=== PATIENT | male | born 1945 | race African-American/Black ===

== ENCOUNTER → 2018-08-12 | Outpatient (CLI) | payer MEDICARE ==
[2018-08-12 11:37] LABS: ABSOLUTE EOSINOPHILS # (AUTO) 0.1 10^3/uL (0.0-0.6); ABSOLUTE MONOCYTES (AUTO) 0.3 10^3/uL (0.1-1.4); BASOPHILS % (AUTO) 0.4 % (0-2); TOTAL CELLS COUNTED % (AUTO) 100 %
[2018-08-12 11:48] LABS: ABSOLUTE LYMPHOCYTES (AUTO) 1.4 10^3/uL (0.5-4.7); ABSOLUTE NEUT (AUTO) 2.5 10^3/uL (1.7-8.2); EOSINOPHILS % (AUTO) 3.2 % (0-6); HEMATOCRIT 36.9 % (37.9-51.0); HEMOGLOBIN 12.4 g/dL (13.5-17.0); LYMPHOCYTES % (AUTO) 31.8 % (13-45); MEAN CORPUSCULAR HEMOGLOBIN 30.2 pg (27.0-33.4); MEAN CORPUSCULAR HGB CONC 33.7 g/dL (32.0-36.0); MEAN CORPUSCULAR VOLUME 90 fl (80-97); MONOCYTES % (AUTO) 7.8 % (3-13); PLATELET COUNT 236 10^3/uL (150-450); RED BLOOD COUNT 4.12 10^6/uL (4.35-5.55); SEGMENTED NEUTROPHILS % (AUTO) 56.8 % (42-78); WHITE BLOOD COUNT 4.4 10^3/uL (4.0-10.5)
[2018-08-12 11:56] LABS: ALANINE AMINOTRANSFERASE 28 U/L (21-72); ALBUMIN 4.4 g/dL (3.5-5.0); ALKALINE PHOSPHATASE 86 U/L (38-126); ANION GAP 9 (5-19); ASPARTATE AMINO TRANSFERASE 19 U/L (17-59); BILIRUBIN,DIRECT 0.2 mg/dL (0.0-0.4); BILIRUBIN,TOTAL 0.5 mg/dL (0.2-1.3); BLOOD UREA NITROGEN 24 mg/dL (7-20); CALCIUM 9.6 mg/dL (8.4-10.2); CARBON DIOXIDE 23 mmol/L (22-30); CHLORIDE 111 mmol/L (98-107); CHOLESTEROL 153.46 mg/dL (0-200); GLUCOSE 90 mg/dL (75-110); POTASSIUM 4.6 mmol/L (3.6-5.0); SODIUM 142.7 mmol/L (137-145); TOTAL PROTEIN 6.9 g/dL (6.3-8.2); TRIGLYCERIDES 81 mg/dL (<150)
[2018-08-12 12:03] LABS: AMORPHOUS SEDIMENT,URINE TRACE /HPF; APPEARANCE,URINE TURBID; BILIRUBIN,URINE NEGATIVE (NEGATIVE); COLOR,URINE YELLOW; GLUCOSE, URINE NEGATIVE (NEGATIVE); KETONES,URINE NEGATIVE (NEGATIVE); LEUKOCYTE ESTERASE,URINE LARGE (NEGATIVE); NITRITE,URINE NEGATIVE (NEGATIVE); PROTEIN,URINE 30 mg/dL (NEGATIVE); URINE SPECIFIC GRAVITY 1.014; UROBILINOGEN,URINE NEGATIVE mg/dL (<2.0)
[2018-08-12 12:10] LABS: DIRECT LDL 79 mg/dL (<100)
--- NOTE | 2018-08-12 12:23 | RADIOLOGY REPORT (SQ) ---
EXAM DESCRIPTION: CHEST PA/LATERAL COMPLETED DATE/TIME: 08/12/2018 11:06 am REASON FOR STUDY: CHRONIC OBSTRUCTIVE PULMONARY DISEASE, UNSPECIFIED COMPARISON: None. EXAM PARAMETERS: NUMBER OF VIEWS: two views TECHNIQUE: Digital Frontal and Lateral radiographic views of the chest acquired. RADIATION DOSE: NA LIMITATIONS: none FINDINGS: LUNGS AND PLEURA: Bandlike atelectasis in the left posterior costophrenic sulcus on latera l view. Lungs are otherwise well inflated and clear. Mild flattening of the hemidiaphragms. No pleural effu cosmo or pneumothorax. MEDIASTINUM AND HILAR STRUCTURES: No masses or contour abnormalities. HEART AND VASCULAR STRUCTURES: Heart normal size. No evidence for failure. BONES: No acute findings. HARDWARE: None in the chest. OTHER: No other significant finding. IMPRESSION: Bandlike atelectasis or scarring in the left posterior costophrenic sulcus. TECHNICAL DOCUMENTATION: JOB ID: [id number] [employer]- All Rights Reserved Reading location - IP/workstation name: [email or web address]
[2018-08-13 10:23] LABS: PROSTATE SPECIFIC ANTIGEN 1.4 ng/mL (0.0-4.0); PSA % FREE 27.1 % (.); PSA FREE 0.38 ng/mL
== END ==
LOC: OD 10:17
PROVIDERS: ATTEND Internal Medicine
DX: I12.9 Hypertensive chronic kidney disease with stage 1 through stage 4 chronic kidney disease, or unspecified chronic kidney disease (principal); N18.2 Chronic kidney disease, stage 2 (mild); J44.9 Chronic obstructive pulmonary disease, unspecified; E55.9 Vitamin D deficiency, unspecified; E78.2 Mixed hyperlipidemia; R01.1 Cardiac murmur, unspecified; R97.20 Elevated prostate specific antigen [PSA]
CPT/HCPCS: 36415; 71046; 80053; 80061; 81001; 82306; 84154; 84443; 85025

== ENCOUNTER → 2018-08-27 | Outpatient (CLI) | payer MEDICARE ==
--- NOTE | 2018-08-27 12:11 | RADIOLOGY REPORT (SQ) ---
EXAM DESCRIPTION: U/S RETROPERITON (RENAL/AORTA) COMPLETED DATE/TIME: 08/27/2018 11:47 am REASON FOR STUDY: RENAL FAILURE (R17), CKD IV (N18.4) R17 UNSPECIFIED JAUNDICE N18.4 CHRONIC KIDNE Y DISEASE, STAGE 4 (SEVERE) COMPARISON: None. TECHNIQUE: Dynamic and static grayscale images acquired of the kidneys and bladder and recorded on P ACS. Additional selected color Doppler and spectral images recorded. LIMITATIONS: None. FINDINGS: RIGHT KIDNEY: 11.5 cm in length. Diffuse cortical thinning and increased echogenicity fro m medical renal disease. No right renal stones or masses. 2 cm right upper pole and 1.8 cm right up per pole renal cortical cysts. LEFT KIDNEY: Left kidney is 10.6 cm in length, difficult to visualize. There marked dilatation of t he left renal pelvis, from either a congenital UPJ obstruction or left ureteral obstruction. Diffuse left kidney cortical thinning and increased echogenicity from medical renal disease. No stones, or masses. 2 cm cyst right lower pole kidney. BLADDER: No masses. OTHER FINDINGS: No other significant finding. IMPRESSION: Echogenic kidneys from bilateral medical renal disease Marked dilatation of the left renal pelvis, question UPJ obstruction versus left ureteral distal obst ruction. TECHNICAL DOCUMENTATION: JOB ID: [id number] [employer]- All Rights Reserved Reading location - IP/workstation name: [email or web address]
== END ==
LOC: RAD 10:46
PROVIDERS: ATTEND Internal Medicine
DX: R17 Unspecified jaundice (principal); N18.4 Chronic kidney disease, stage 4 (severe)
CPT/HCPCS: 76770

== ENCOUNTER → 2018-09-14 | Outpatient (CLI) | payer MEDICARE ==
[2018-09-15 14:40] LABS: A/G RATIO 1.4 (0.7-1.7); ALPHA-2-GLOBULIN 2 0.7 g/dL (0.4-1.0); GAMMA GLOBULIN 0.9 g/dL (0.4-1.8); GLOBULIN TOTAL 2.8 g/dL (2.2-3.9); MONOCLONAL SPIKE Not Observed g/dL (Not Observ); PROTEIN TOTAL SERUM 6.8 g/dL (6.0-8.5)
[2018-09-16 12:38] LABS: IMMUNOGLOBULIN A 115 mg/dL (61-437); IMMUNOGLOBULIN G 978 mg/dL (700-1600)
[2018-09-16 13:04] LABS: URINE CREATININE 104.7 mg/dL (22-328); URINE PROTEIN 93.8 mg/dL (<12)
[2018-09-16 13:16] LABS: 24 HOUR URINE PROTEIN RESULT 1538 mg/day (42-225); 24 HR URINE CREAT RESULT 1.7 mg/day (0.8-2.0)
[2018-09-16 13:30] LABS: IMMUNOGLOBULIN M 21 mg/dL (15-143)
== END ==
LOC: OD 10:47
PROVIDERS: ATTEND Internal Medicine
DX: N18.4 Chronic kidney disease, stage 4 (severe) (principal); D64.9 Anemia, unspecified; M32.9 Systemic lupus erythematosus, unspecified; E78.2 Mixed hyperlipidemia; I10 Essential (primary) hypertension
CPT/HCPCS: 36415; 82570; 82784; 83970; 84156; 84165; 86021; 86038; 86225

== ENCOUNTER 2018-09-17 08:24 | Day surgery (SDC) | payer MEDICARE ==
[~2018-09-17 08:24] MED LIST: PROPOFOL INJ 200 MG/20 ML VIAL IV ONE
[2018-09-17 10:35] VITALS: BP 126/75
--- NOTE | 2018-09-17 11:38 | Operative Report ---
Operative Report DATE OF SURGERY: 09/17/18 Operative Report: The risks, benefits and alternatives of the procedure including the risk of bleeding, perforation requiring surgery have been explained to the patient in detail and informed consent has been obtained. The patient is placed in a left, lateral decubital position. Timeout was called. Propofol medication is administered. Rectal examination is done which did not reveal any masses, tears or fissures. An Olympus videoscope was introduced into the patient's rectum. The scope was then carefully advanced all the way to the cecum. The cecum was identified by the usual anatomical landmarks including the ileocecal valve as well as appendiceal office. Photodocumentation is obtained. Scope was then sequentially pulled back via the various segments of the colon including the ascending colon, hepatic flexure, transverse colon, splenic flexure, descending colon and finally into the rectosigmoid portions of the colon. Retroflexion maneuver was performed. PREOPERATIVE DIAGNOSIS: Personal history of polyp POSTOPERATIVE DIAGNOSIS: Colon polyp noted in the hepatic flexure that was removed via snare polypectomy and retrieved. 3 polyps noted in the splenic flexure status post snare polypectomy and retrieved. Endo Clip placed at the site of one polyp to reduce the risk of post polypectomy bleeding. Diverticulosis without any evidence of diverticulitis. Internal hemorrhoids OPERATION: Colonoscopy with snare polypectomy SURGEON: AJAY TAYLOR ANESTHESIA: LMAC TISSUE REMOVED OR ALTERED: As noted above. COMPLICATIONS: None. ESTIMATED BLOOD LOSS: None. INTRAOPERATIVE FINDINGS: As noted above. PROCEDURE: Patient tolerated the procedure well. No immediate postprocedure comp occasions are noted. Patient is discharged in good condition. Discharge date 09/17/2018. Discharge diet: Regular. Discharge activity: Regular. 2-3-week follow-up to discuss findings. Patient is instructed call the office or proceed to the emergency room should he be any further problems or questions. 3-5-year surveillance colonoscopy depending on the pathology of the polyp We will wait on the pathology.
== END 2018-09-17 10:38 | disposition home or self-care (01) ==
LOC: OROUT 08:24
PROVIDERS: ATTEND Internal Medicine Gastroenterology
DX: Z12.11 Encounter for screening for malignant neoplasm of colon (principal); D12.6 Benign neoplasm of colon, unspecified; K57.30 Diverticulosis of large intestine without perforation or abscess without bleeding; K64.8 Other hemorrhoids; Z86.010 Personal history of colon polyps; E78.2 Mixed hyperlipidemia; I12.9 Hypertensive chronic kidney disease with stage 1 through stage 4 chronic kidney disease, or unspecified chronic kidney disease; N18.4 Chronic kidney disease, stage 4 (severe); Z79.899 Other long term (current) drug therapy; Z79.82 Long term (current) use of aspirin; Z87.891 Personal history of nicotine dependence
CPT/HCPCS: 45385; 88305 ×2; J2704; 811

== ENCOUNTER → 2018-11-06 | Outpatient (CLI) | payer MEDICARE ==
[2018-11-06 11:01] LABS: HEMATOCRIT 37.5 % (37.9-51.0); HEMOGLOBIN 12.4 g/dL (13.5-17.0); MEAN CORPUSCULAR HEMOGLOBIN 29.3 pg (27.0-33.4); MEAN CORPUSCULAR HGB CONC 32.9 g/dL (32.0-36.0); MEAN CORPUSCULAR VOLUME 89 fl (80-97); PLATELET COUNT 251 10^3/uL (150-450); RED BLOOD COUNT 4.22 10^6/uL (4.35-5.55); RED CELL DISTRIBUTION WIDTH 14.9 % (11.5-14.0); WHITE BLOOD COUNT 4.4 10^3/uL (4.0-10.5)
[2018-11-06 11:02] LABS: APPEARANCE,URINE CLEAR; BILIRUBIN,URINE NEGATIVE (NEGATIVE); COLOR,URINE YELLOW; GLUCOSE, URINE NEGATIVE (NEGATIVE); KETONES,URINE NEGATIVE (NEGATIVE); LEUKOCYTE ESTERASE,URINE NEGATIVE (NEGATIVE); NITRITE,URINE NEGATIVE (NEGATIVE); PROTEIN,URINE 100 mg/dL (NEGATIVE); URINE SPECIFIC GRAVITY 1.013; UROBILINOGEN,URINE NEGATIVE mg/dL (<2.0)
[2018-11-06 11:08] LABS: ANION GAP 11 (5-19); BLOOD UREA NITROGEN 20 mg/dL (7-20); CALCIUM 9.6 mg/dL (8.4-10.2); CARBON DIOXIDE 22 mmol/L (22-30); CHLORIDE 110 mmol/L (98-107); GLUCOSE 93 mg/dL (75-110); PHOSPHORUS 3.4 mg/dL (2.5-4.5); POTASSIUM 4.8 mmol/L (3.6-5.0); SODIUM 143.2 mmol/L (137-145)
[2018-11-06 11:24] LABS: UR PRO/CREAT RATIO RESULT 0.9 mg/mg (0.0-0.2); URINE CREATININE 112.8 mg/dL (22-328); URINE PROTEIN 103.5 mg/dL (<12)
== END ==
LOC: OD 10:18
PROVIDERS: ATTEND Physician Assistant Medical
DX: I12.9 Hypertensive chronic kidney disease with stage 1 through stage 4 chronic kidney disease, or unspecified chronic kidney disease (principal); N18.4 Chronic kidney disease, stage 4 (severe)
CPT/HCPCS: 36415; 80048; 81001; 82570; 83970; 84100; 84156; 85027

== ENCOUNTER → 2018-11-27 | Outpatient (CLI) | payer MEDICARE ==
--- NOTE | 2018-11-27 11:41 | RADIOLOGY REPORT (SQ) ---
EXAM DESCRIPTION: ANKLE LEFT COMPLETE COMPLETED DATE/TIME: 11/27/2018 11:23 am REASON FOR STUDY: GOUT COMPARISON: None. NUMBER OF VIEWS: Three views left ankle. LIMITATIONS: None. FINDINGS: There is no acute or significant bone, joint or soft tissue abnormality. OTHER: No other significant finding. IMPRESSION: NORMAL STUDY. TECHNICAL DOCUMENTATION: JOB ID: [id number] Reading location - IP/workstation name: [email or web address]
== END ==
LOC: OD 10:54
PROVIDERS: ATTEND Internal Medicine
DX: E03.9 Hypothyroidism, unspecified (principal); M10.9 Gout, unspecified
CPT/HCPCS: 36415; 84443; 84550

== ENCOUNTER → 2019-02-05 | Outpatient (CLI) | payer MEDICARE ==
[2019-02-05 11:41] LABS: HEMATOCRIT 35.3 % (37.9-51.0); HEMOGLOBIN 11.8 g/dL (13.5-17.0); MEAN CORPUSCULAR HEMOGLOBIN 29.3 pg (27.0-33.4); MEAN CORPUSCULAR HGB CONC 33.4 g/dL (32.0-36.0); MEAN CORPUSCULAR VOLUME 88 fl (80-97); PLATELET COUNT 225 10^3/uL (150-450); RED BLOOD COUNT 4.02 10^6/uL (4.35-5.55); RED CELL DISTRIBUTION WIDTH 15.4 % (11.5-14.0); WHITE BLOOD COUNT 3.9 10^3/uL (4.0-10.5)
[2019-02-05 11:43] LABS: ANION GAP 8 (5-19); BLOOD UREA NITROGEN 24 mg/dL (7-20); CALCIUM 9.6 mg/dL (8.4-10.2); CARBON DIOXIDE 23 mmol/L (22-30); CHLORIDE 111 mmol/L (98-107); GLUCOSE 95 mg/dL (75-110); PHOSPHORUS 3.8 mg/dL (2.5-4.5); POTASSIUM 4.4 mmol/L (3.6-5.0)
[2019-02-05 12:56] LABS: APPEARANCE,URINE CLEAR; BILIRUBIN,URINE NEGATIVE (NEGATIVE); COLOR,URINE STRAW; GLUCOSE, URINE NEGATIVE (NEGATIVE); KETONES,URINE NEGATIVE (NEGATIVE); LEUKOCYTE ESTERASE,URINE NEGATIVE (NEGATIVE); NITRITE,URINE NEGATIVE (NEGATIVE); PROTEIN,URINE 30 mg/dL (NEGATIVE); URINE SPECIFIC GRAVITY 1.012; UROBILINOGEN,URINE NEGATIVE mg/dL (<2.0)
[2019-02-05 13:20] LABS: UR PRO/CREAT RATIO RESULT 1.1 mg/mg (0.0-0.2); URINE CREATININE 75.8 mg/dL (22-328); URINE PROTEIN 84.2 mg/dL (<12)
== END ==
LOC: OD 10:46
PROVIDERS: ATTEND Physician Assistant Medical
DX: I12.9 Hypertensive chronic kidney disease with stage 1 through stage 4 chronic kidney disease, or unspecified chronic kidney disease (principal); N18.4 Chronic kidney disease, stage 4 (severe); R80.9 Proteinuria, unspecified; N25.0 Renal osteodystrophy
CPT/HCPCS: 36415; 80048; 81001; 82570; 83970; 84100; 84156; 85027

== ENCOUNTER → 2020-03-20 | Outpatient (CLI) | payer MEDICARE ==
--- NOTE | 2020-03-20 17:54 | RADIOLOGY REPORT (SQ) ---
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 TECHNIQUE: Images of the axial and proximal appendicular skeleton are obtained, along with lateral s kull and frontal chest films. LIMITATIONS: None. FINDINGS: AP CHEST: No bony findings. Lungs are clear. Mild hyperexpansion. AP AND LATERAL SKULL: No worrisome bone lesions. AP BOTH HUMERI: No worrisome bone lesions. TWO-VIEW LUMBAR SPINE: No worrisome bone lesions. TWO-VIEW THORACIC SPINE: No worrisome bone lesions. AP PELVIS: No worrisome bone lesions. AP BOTH FEMURS: No worrisome bone lesions. LEFT AND RIGHT TIBIA AND FIBULA: No worrisome bone lesions. TWO VIEW CERVICAL SPINE: Incidental note is made of a left cervical rib. No lytic or sclerotic proc ess ease. IMPRESSION: Negative skeletal survey. TECHNICAL DOCUMENTATION: JOB ID: [id number] [employer]- All Rights Reserved Reading location - IP/workstation name: [email or web address]
== END ==
LOC: RAD 14:56
PROVIDERS: ATTEND Internal Medicine
DX: D47.2 Monoclonal gammopathy (principal)
CPT/HCPCS: 77075

== ENCOUNTER 2020-05-11 08:52 | Day surgery (SDC) | payer MEDICARE ==
[2020-05-11 10:53] LABS: HEMATOCRIT 36.9 % (37.9-51.0); HEMOGLOBIN 12.2 g/dL (13.5-17.0); MEAN CORPUSCULAR HGB CONC 33.2 g/dL (32.0-36.0); MEAN CORPUSCULAR VOLUME 91 fl (80-97); PLATELET COUNT 243 10^3/uL (150-450); RED BLOOD COUNT 4.08 10^6/uL (4.35-5.55); RED CELL DISTRIBUTION WIDTH 15.4 % (11.5-14.0); WHITE BLOOD COUNT 5.1 10^3/uL (4.0-10.5)
[2020-05-11 10:59] LABS: INTERNATIONAL RATION (INR) 0.89; PROTHROMBIN TIME 12.3 SEC (11.4-15.4)
[2020-05-11 11:00] LABS: PARTIAL THROMBOPLASTIN TIME 20.4 SEC (23.5-35.8)
[2020-05-11 11:19] LABS: BLOOD UREA NITROGEN 23 mg/dL (7-20)
[2020-05-11] MEDS ORDERED: FENTANYL CITRATE INJ/PF 100 MCG/2 ML AMPUL ONE (11:19)
[2020-05-11] MEDS ORDERED: MIDAZOLAM 2 MG/2 ML INJ ONE (11:19)
--- NOTE | 2020-05-11 12:14 | RADIOLOGY REPORT (SQ) ---
EXAM DESCRIPTION: CT BIOPSY BONE MARROW, NEEDLE IMAGES COMPLETED DATE/TIME: 05/11/2020 11:57 am REASON FOR STUDY: MONICLONAL GAMMOPATHY D47.2 MONOCLONAL GAMMOPATHY COMPARISON: None. TECHNIQUE: CT guided biopsy of the left iliac crest bone marrow performed with conscious sedation. CT Fluoroscopy Time: 7.[address] scanners at this facility use dose modulation, iterative reconstruction, and/or weight based d osing when appropriate to reduce radiation dose to as low as reasonably achievable (ALARA). [facility]: Dose Right [facility]: CareDose [facility]: Dose Right [facility]: Teradose 4D [facility]: IdentiGEN RADIATION DOSE: CT Rad equipment meets quality standard of care and radiation dose reduction techniq ues were employed. CTDIvol: 8.6 - 17.4 mGy. DLP: 448 mGy-cm.mGy. FINDINGS: After obtaining informed consent and explaining the risks and benefits of conscious sedati on,the patient agreed to the procedure. Prior to the procedure, a time out was performed to verify th e patient's identity and planned procedure. IV conscious sedation was administered and physician direction by the registered nurse using 1.0 mill igrams of Versed and 50 micrograms of fentanyl. Physiologic monitoring was provided before, during, a nd after sedation. The total sedation time was 20 minutes. Documentation face to face time, the performing proceduralist, spent monitoring the patient: [address] scanning was performed to localize the percutaneous site for the biopsy approach. After sterile skin prep and local lidocaine for skin and deep tissue anesthesia, a coaxial biopsy nee dle was used to obtain a bone marrow aspirate, and a bone marrow core of tissue. The biopsy tissue wa s received by Dr. Nunez's nurse to be sent out for evaluation. There were no immediate complication s. Pathology is pending at the time of dictation. IMPRESSION: CT GUIDED ASPIRATE AND CORE BIOPSY OF THE LEFT POSTERIOR ILIAC CREST BONE MARROW PERFORM ED WITHOUT IMMEDIATE COMPLICATION. PATHOLOGY PENDING. IV CONSCIOUS SEDATION WITHOUT COMPLICATION. COMMENT: Quality ID [id number]: Final reports for procedures using fluoroscopy that document radiation exp osure indices, or exposure time and number of fluorographic images (if radiation exposure indices are not available) Patient medication list reviewed: Yes- Quality ID# [id number]:Eligible professional attests to documenting i n the medical record they obtained, updated, or reviewed the patient's current medications.. TECHNICAL DOCUMENTATION: JOB ID: [id number] Quality ID# [id number]: Final reports with documentation of one or more dose reduction techniques (e.g., Aut omated exposure control, adjustment of the mA and/or kV according to patient size, use of iterative r econstruction technique) 2010 [employer]- All Rights Reserved Reading location - IP/workstation name: [email or web address]
[2020-05-11 14:36] VITALS: BP 112/74
--- OUTSIDE RECORDS SUMMARY | 2020-05-14 09:37 | XMS REPORT ---
:1945 [facility] [address] [place] [id number] Care Team Providers Name Role Phone Mayra Ac Attending Clinician Unavailable Noble COFFEY Attending Clinician Unavailable Jorje Attending Clinician Unavailable Allergies, Adverse Reactions, Alerts Allergy Name Allergy Status Severity Reaction(s) Onset Inactive Treat ing Comments Type Date Date Clinician Lisinopril Allergy Active to Drug (Finding) Medications Ordered Filled Start Stop Current Ordering Indication Dosage Frequency Signature Comments Components Medication Medication Date Date Medication? Clinician (SIG) Name Name Clotrimazol Yes Aaron Denneymazo e 1 % 1-14 Noble COFFEY le 1 % External 00:00: External Cream 00 Cream APPLY TO AFFECTED AREA TWICE DAILY. Quantity: 1 Refills: 11 Aaron Dickey MD Start : 0Active 30 GM Tube amLODIPine 2018-06 Yes amLODIPine Besylate 10 2-10 Besylate MG Oral 00:00: 10 MG Oral Tablet 00 Tablet Quantity: 30 Refills: 0 Start : 9Active Simvastatin 2018-06 Yes Simvastati 20 MG Oral 2-10 n 20 MG Tablet 00:00: Oral 00 Tablet Quantity: 30 Refills: 0 Start : 9Active 1amLODIPine Yes 1 Besylate Losartan Yes 1 Potassium Simvastatin Yes 1 Problems Condition Condition Condition Status Onset Resolution Last Treatin g Comments Name Details Category Date Date Treatment Clinician Date Anemia Anemia Diagnosis active Chronic Chronic Diagnosis active kidney kidney disease disease stage 4 stage 4 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) (clinical) Phimosis Phimosis Problem Active Balanoposth Balanoposth Problem Active itis itis Procedures Procedure Date / Time Performed Performing Clinician Devic e Urinalysis 2020-02-07 00:00:00 LESION REMOVAL COLONOSCOPY 2018-09-17 00:00:00 colonoscopy 2017-06-29 00:00:00 TURP History of Prostate surgery Results Test Description Test Time Test Comments Text Results Atomic Results Result Comments WBC 2020-04-04 09:57:00 Test Item Value Reference Range Comments WBC (test code = WBC) 4.6000 4.0000-10.0000 Lymphocytes % (test code = Lymphocytes %) 26.1000 % 22.400 0-43.6000 MID% (test code = MID%) 5.6000 % 1.2000-11.2000 Neutrophils % (test code = Neutrophils %) 68.3000 % 48.900 0-69.9000 Lymphocytes (test code = Lymphocytes) 1.2000 1.2000-3.2 000 MID (test code = MID) 0.3000 0.1000-1.1000 Neutrophils (test code = Neutrophils) 3.1000 1.5000-6.7 000 RBC (test code = RBC) 4.1600 3.7000-4.9000 HGB (test code = HGB) 12.2000 g/dL 11.2000-18.0000 HCT (test code = HCT) 36.1000 % 34.0000-44.0000 MCV (test code = MCV) 86.8000 fL 80.0000-94.0000 MCH (test code = MCH) 29.3000 pg 27.0000-34.0000 MCHC (test code = MCHC) 33.7000 g/dL 31.5000-36.0000 RDW (test code = RDW) 15.6000 11.0000-18.0000 PLT (test code = PLT) 262.0000 140.0000-440.0000 MPV (test code = MPV) 9.1000 fL 6.8000-10.6000 [id number] 09:57:00 Test Item Value Reference Range Comments Creatinine (test code = Creatinine) 2.6000 mg/dL 0.5000-1.200 0 Cr Clearance (Est) (test code = Cr 29.9900 85.0000-125.0 000 Clearance (Est)) Glucose (test code = Glucose) 106.0000 mg/dL 70.0000-118.0000 BUN (test code = BUN) 20.0000 mg/dL 7.0000-22.0000 Sodium (test code = Sodium) 141.0000 mmol/L 128.0000-145.0000 Potassium (test code = Potassium) 4.1000 mmol/L 3.6000-5.1000 Chloride (test code = Chloride) 111.0000 mmol/L 96.0000-108.0000 CO2 (test code = CO2) 21.0000 mmol/L 18.0000-33.0000 Calcium (test code = Calcium) 9.0400 mg/dL 8.0000-10.3000 Alkaline Phosphatase (test code = Alkaline 79.0000 42.00 00-141.0000 Phosphatase) ALT (SGPT) (test code = ALT (SGPT)) 14.0000 10.0000-47.0 000 AST (SGOT) (test code = AST (SGOT)) 17.0000 11.0000-37.0 000 Bilirubin, Total (test code = Bilirubin, 0.6000 mg/dL 0.0000- 1.6000 Total) Albumin (test code = Albumin) 4.6000 g/dL 3.5000-5.5000 Protein, Total (test code = Protein, 6.6000 g/dL 6.4000-8.10 00 Total) eGFR -Pakistani (test code = eGFR 29.0000 60.0000- 200.0000 -Pakistani) eGFR Vxy-Topdjyg-Jypzsybk (test code = 24.0000 60.0000-2 00.0000 eGFR Ufl-Uymbqnd-Xtiyywif) Protein, [id number] 15:38:00 Test Item Value Reference Range Comments Protein, Total (test code = Protein, Total) 6.4000 g/dL 6.00 00-8.5000 Albumin (test code = Albumin) 3.9000 g/dL 2.9000-4.4000 Globulin (test code = Globulin) 2.5000 g/dL 2.2000-3.9000 A/G Ratio (test code = A/G Ratio) 1.6000 0.7000-1.7000 [id number] 15:38:00 Test Item Value Reference Range Comments IGG (test code = IGG) 887.0000 mg/dL 603.7734-4064.0000 IGA (test code = IGA) 97.0000 mg/dL 61.0000-437.0000 IGM (test code = IGM) 19.0000 mg/dL 15.0000-143.0000 Alpha-1 Globulin (test code 0.2000 g/dL 0.0000-0.4000 = Alpha-1 Globulin) Alpha-2 Globulin (test code 0.7000 g/dL 0.4000-1.0000 = Alpha-2 Globulin) Beta Globulin (test code = 0.9000 g/dL 0.7000-1.3000 Beta Globulin) Gamma Globulin (test code = 0.7000 g/dL 0.4000-1.8000 Gamma Globulin) M-Avelino (test code = M-Avelino) Immunofixation Interp, Serum Comment The immunofixation (test code = Immunofixation pattern appears unremarkable. Interp, Serum) Evidence of monoclonal protein is not apparent PE Note (test code = PE Comment Protein Note) electrophoresis scan will follow via computer, mail, or green coffee blender delivery [place] Free Light Chain (test 1134.7000 mg/L 3.3000-19.4000 code = [place] Free Light Chain) Lambda Free Light Chain 15.8000 mg/L 5.7000-26.3000 (test code = Lambda Free Light Chain) [place]/Lambda Free Ratio 71.8200 0.2600-1.6500 (test code = [place]/Lambda Free Ratio) [id number] 13:56:00 Test Item Value Reference Range Comments Creatinine (test code = Creatinine) 2.7300 mg/dL 0.7600-1.270 0 Cr Clearance (Est) (test code = Cr 28.8000 85.0000-125.0 000 Clearance (Est)) Glucose (test code = Glucose) 102.0000 mg/dL 65.0000-99.0000 BUN (test code = BUN) 21.0000 mg/dL 8.0000-27.0000 eGFR Cid-Qjyxaad-Jarmedpm (test code = 22.0000 eGFR Gjp-Utmppuc-Npiuwegu) eGFR -Pakistani (test code = eGFR 25.0000 -Pakistani) BUN/Creat Ratio (test code = BUN/Creat 8.0000 10.0000-2 4.0000 Ratio) Sodium (test code = Sodium) 143.0000 mmol/L 134.0000-144.0000 Potassium (test code = Potassium) 4.6000 mmol/L 3.5000-5.2000 Chloride (test code = Chloride) 110.0000 mmol/L 96.0000-106.0000 CO2 (test code = CO2) 19.0000 mmol/L 20.0000-29.0000 Calcium (test code = Calcium) 9.4000 mg/dL 8.6000-10.2000 Protein, Total (test code = Protein, 6.5000 g/dL 6.0000-8.50 00 Total) Albumin (test code = Albumin) 4.3000 g/dL 3.7000-4.7000 Globulin (test code = Globulin) 2.2000 g/dL 1.5000-4.5000 A/G Ratio (test code = A/G Ratio) 2.0000 1.2000-2.2000 Bilirubin, Total (test code = Bilirubin, 0.3000 mg/dL 0.0000- 1.2000 Total) Alkaline Phosphatase (test code = Alkaline 84.0000 39.00 00-117.0000 Phosphatase) AST (SGOT) (test code = AST (SGOT)) 17.0000 0.0000-40.00 00 ALT (SGPT) (test code = ALT (SGPT)) 17.0000 0.0000-44.00 00 [id number] 13:56:00 Test Item Value Reference Range Comments IGG (test code = IGG) 869.0000 mg/dL 603.7985-0587.0000 IGA (test code = IGA) 92.0000 mg/dL 61.0000-437.0000 IGM (test code = IGM) 19.0000 mg/dL 15.0000-143.0000 [id number] 10:19:00 Test Item Value Reference Range Comments WBC (test code = WBC) 3.4000 4.0000-10.0000 Lymphocytes % (test code = Lymphocytes %) 28.4000 % 22.400 0-43.6000 MID% (test code = MID%) 6.2000 % 1.2000-11.2000 Neutrophils % (test code = Neutrophils %) 65.4000 % 48.900 0-69.9000 Lymphocytes (test code = Lymphocytes) 0.9000 1.2000-3.2 000 MID (test code = MID) 0.3000 0.1000-1.1000 Neutrophils (test code = Neutrophils) 2.2000 1.5000-6.7 000 RBC (test code = RBC) 4.1200 3.7000-4.9000 HGB (test code = HGB) 12.1000 g/dL 11.2000-18.0000 HCT (test code = HCT) 35.5000 % 34.0000-44.0000 MCV (test code = MCV) 86.1000 fL 80.0000-94.0000 MCH (test code = MCH) 29.5000 pg 27.0000-34.0000 MCHC (test code = MCHC) 34.2000 g/dL 31.5000-36.0000 RDW (test code = RDW) 15.2000 11.0000-18.0000 PLT (test code = PLT) 256.0000 140.0000-440.0000 MPV (test code = MPV) 9.3000 fL 6.8000-10.6000 Assessments Condition Name Status Diagnosis Date Treating Clinici an Balanoposthitis Active Phimosis Active Encounter for screening for malignant Active neoplasm of colon 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 Alfredito Glaser [facility] Medical Oncology Oncology [facility] 2020-05-02 2020-05-02 Outpatient Matthew mccall [id number] 00:00:00 00:00:00 [facility] Oncology Oncology [facility] 2020-04-18 2020-04-18 Outpatient Matthew mccall [id number] 00:00:00 00:00:00 [facility] Medical Oncology Oncology [facility] 2020-04-13 2020-04-13 Outpatient Matthew mccall [id number] 00:00:00 00:00:00 [facility] Oncology Oncology [facility] 2020-04-12 2020-04-12 Outpatient Matthew Nunez rn [id number] 00:00:00 00:00:00 [facility] Oncology Oncology [facility] 2020-04-11 2020-04-11 Outpatient Matthew Nunez rn [id number] 00:00:00 00:00:00 [facility] Oncology Oncology [facility] 2020-04-10 2020-04-10 Outpatient Matthew Nunez rn [id number] 00:00:00 00:00:00 [facility] Oncology Oncology [facility] 2020-04-05 2020-04-05 Outpatient Matthew mccall [id number] 00:00:00 00:00:00 Medical Medical Oncology Oncology [facility] 2020-04-04 2020-04-04 Dr. Mayra Dukes [facility] [id number] 00:00:00 00:00:00 Mona M. Alfredito n Medical Medical Oncology Oncology [facility] 2020-04-03 2020-04-03 Outpatient Leslieer Leslieer n [id number] 00:00:00 00:00:00 [facility] Oncology Oncology [facility] 2020-03-29 2020-03-29 Dr. Mayra Dukes Matthew Nelsonmarlin rn [id number] 00:00:00 00:00:00 Mona Miller [facility] Oncology Oncology [facility] 2020-03-27 2020-03-27 Outpatient Juanleif Matthew Nelsonmarlin rn [id number] 00:00:00 00:00:00 [facility] On[facility] 2020-03-26 2020-03-26 Outpatient Francisco JavierMatthew lynmarlin rn [id number] 00:00:00 00:00:00 [facility] Oncology Oncology [facility] 2020-02-23 2020-02-23 NedFrancisco JavierMatthew lyn [facility] [id number] 00:00:00 00:00:00 Richa [facility] Oncology Oncology [facility] 2020-02-22 2020-02-22 Outpatient Matthew Nelsoner n [id number] 00:00:00 00:00:00 [facility] Oncology [facility] 2020-02-21 2020-02-21 Outpatient Leslie Leslieer n [id number] 00:00:00 00:00:00 [facility] Oncology Oncology [facility] 2020-02-16 2020-02-16 Outpatient [facility] Leslieer n [id number] 00:00:00 00:00:00 [facility] Oncology Oncology [facility] 2020-02-08 2020-02-08 Appointment АННА DickeyBRIAN [id number] 10:30:00 08:30:18 ; Aaron Dickey MD 2020-02-02 2020-02-02 Outpatient [facility] n [id number] 00:00:00 00:00:00 [facility] Oncology Oncology [facility] 2020-01-26 2020-01-26 Outpatient [facility] n [id number] 00:00:00 00:00:00 [facility] Oncology Oncology [facility] 2019-09-14 2019-09-14 Appointment АННА Dickey CETW [id number] 08:45:00 08:45:00 ; Aaron Dickey MD 2019-07-12 2019-07-12 Appointment [facility] [id number] 09:30:00 09:30:00 ; Aaron Dickey MD 2018-12-13 2018-12-13 Appointment [facility] [id number] 10:00:00 10:00:00 ; Bala Lima MD 2018-09-17 2018-09-17 Outpatient Emilio Recinos [facility] Wallace isaac [id number] 00:00:00 00:00:00 Children [id number] s [id number] and [id number] [facility]pec[facility] ty [facility], Family History Family Member Diagnosis Comments Start Date Stop Date Father Family history of type 2 diabetes mellitus Father Family history of heart disease Social History Smoking Status Start Date Stop Date Yes - but quit (former) 2020-04-04 00:00:00 2020-04-04 00:00 :00 Social History Observation Description Sex Male Vital Signs Vital Name Observation Time Observation Value Comments BMI 2020-05-03 09:21:55 26.2600 BP fuentes 2020-05-03 09:21:55 63.0000 mm[Hg] Bdy height 2020-05-03 09:21:55 72.0000 [in_i] SaO2% BldA PulseOx 2020-05-03 09:21:55 98.0000 % Heart rate 2020-05-03 09:21:55 83.0000 /min Resp rate 2020-05-03 09:21:55 20.0000 /min BP sys 2020-05-03 09:21:55 112.0000 mm[Hg] Body temperature 2020-05-03 09:21:55 97.2000 [degF] Weight 2020-05-03 09:21:55 193.6000 [lb_av] BMI 2020-04-04 10:13:35 26.2300 BP fuentes 2020-04-04 10:13:35 78.0000 mm[Hg] Bdy height 2020-04-04 10:13:35 72.0000 [in_i] SaO2% BldA PulseOx 2020-04-04 10:13:35 98.0000 % Heart rate 2020-04-04 10:13:35 69.0000 /min Resp rate 2020-04-04 10:13:35 18.0000 /min BP sys 2020-04-04 10:13:35 131.0000 mm[Hg] Body temperature 2020-04-04 10:13:35 97.5000 [degF] Weight 2020-04-04 10:13:35 193.4000 [lb_av] Bdy height 2020-03-26 10:21:51 72.0000 [in_i] Body temperature 2020-03-26 10:21:51 97.7000 [degF] Heart rate 2020-02-23 09:48:14 70.0000 /min Resp rate 2020-02-23 09:48:14 18.0000 /min BP sys 2020-02-23 09:48:14 132.0000 mm[Hg] Body temperature 2020-02-23 09:48:14 97.2000 [degF] Weight 2020-02-23 09:48:14 195.0000 [lb_av] BMI 2020-02-23 09:48:14 26.4500 BP fuentes 2020-02-23 09:48:14 75.0000 mm[Hg] Bdy height 2020-02-23 09:48:14 72.0000 [in_i] SaO2% BldA PulseOx 2020-02-23 09:48:14 98.0000 % Hospital Discharge Instructions NameDatesDetailsInstructions not documented
== END 2020-05-11 14:06 | disposition home or self-care (01) ==
LOC: RAD 08:52
PROVIDERS: ATTEND Internal Medicine
DX: D47.2 Monoclonal gammopathy (principal)
CPT/HCPCS: 36415; 84520; 82565; 85027; 85610; 85730; 38221; J2250; J3010